=== PATIENT | male | born 1960 ===

== ENCOUNTER 2021-07-03 10:39 | Day surgery (SDC) | payer OTHER ==
[~2021-07-03 10:39] MED LIST: AMBIEN10 MG PO; AVAPRO150 MG PO; B12 ACTIVE1000 MCG PO; CELEBREX200MG PO; GLIPIZIDE XL10 MG PO; LYRICA200 MG PO; METFORMIN HCL1000 M2 PO; WELLBUTRIN XL150 M1 PO
[2021-07-03] MEDS ORDERED: TRAMADOL HCL50 MG PO (14:16)
== END 2021-07-03 22:00 | disposition home or self-care (01) ==
LOC: CIR.AMB 10:39
PROVIDERS: ATTEND Surgery
DX: N52.8 Other male erectile dysfunction (principal); Z20.822 Contact with and (suspected) exposure to COVID-19
CPT/HCPCS: 54405; C1813